=== PATIENT | male | born 1970 | race African-American/Black ===

== ENCOUNTER 2023-10-13 14:26 | Emergency (ER) | payer OTHER ==
[2023-10-13] MEDS ORDERED: Bacitracin 1 PK ONE (15:41)
== END 2023-10-13 15:56 | disposition home or self-care (01) ==
LOC: ERS 14:26
DX: S01.111D Laceration without foreign body of right eyelid and periocular area, subsequent encounter (principal); I10 Essential (primary) hypertension; X58.XXXD Exposure to other specified factors, subsequent encounter